=== PATIENT | male | born 1980 | race Two or more races ===

== ENCOUNTER 2023-10-10 13:08 | Emergency (ER) | payer OTHER ==
[2023-10-10 15:13] VITALS: BP 0/0; PULSE 80; RESP 18
[2023-10-10] MEDS: IBUPROFEN 100 MG/5 ML SUSPENSION UDCUP PO ONE (15:47)
[2023-10-10] MEDS: PENICILLIN V POTASSIUM 250 MG/5 ML SUSP ORAL.SYG PO ONE (15:47)
[2023-10-10] MEDS ORDERED: PENIC2505L PO (15:48)
== END 2023-10-10 16:25 | disposition home or self-care (01) ==
LOC: EMS 13:09
DX: K04.7 Periapical abscess without sinus (principal); F84.0 Autistic disorder
CPT/HCPCS: 99283